=== PATIENT | male | born 1995 | race Caucasian/White ===

== ENCOUNTER 2019-06-03 19:23 | Emergency (ER) | payer SELFPAY ==
[~2019-06-03] VITALS: Ht 182.9 cm; Wt 74.8 kg
[2019-06-03] MEDS ORDERED: IBUPROFEN 800 MG TABLET PO ONE (20:30)
[2019-06-03] MEDS ORDERED: IBUPROFEN 800 MG TABLET ONE (20:55)
--- NOTE | 2019-06-03 21:35 | NUR ---
Patient discharged to home in stable conditon. Written and verbal after care instructions given. Patient verbalizes understanding of instructions. Walked out of ER with no distress noted.
[2019-06-03 21:36] VITALS: BP 110/77
== END 2019-06-03 21:37 | disposition home or self-care (01) ==
LOC: ER 19:25
DX: M25.512 Pain in left shoulder (principal)
CPT/HCPCS: 73030; A4663